=== PATIENT | male | born 1955 | race Caucasian/White ===

== ENCOUNTER 2019-07-08 16:29 | Emergency (ER) | payer MEDICARE, MEDICAID ==
[2019-07-08] MEDS ORDERED: KETAMINE HCL* 50 MG/ML 10 ML VIAL IV ONE (16:34)
--- NOTE | 2019-07-08 16:44 | ED ---
Respiratory - HPI Summary HPI Summary: Pt is a 64 y/o M presenting to the ED brought in by EMS for respiratory distress. He had his chest tube removed this morning on the L upper side of his chest from [facility], and when he returned home he went up the stairs and began hyperventilating. He denies fever. He has hx of COPD and multiple PTX. He denies hx of anticoagulant therapy. EMS stated he was given a duoneb and was satting 85% in the ambulance. Pt's medications reviewed, allergies noted. - History of Current Complaint Stated Complaint: SOB PER EMS Time Seen by Provider: 07/08/19 16:40 Hx Obtained From: Patient Onset/Duration: Sudden Onset, Lasting Hours, Still Present Timing: Constant Initial Severity: Moderate Current Severity: Severe Character: Dyspnea at Rest Sputum Amount: None Aggravating Factor(s): Exertion Alleviating Factor(s): Nothing Associated Signs and Symptoms: SOB - Allergy/Home Medications Allergies/Adverse Reactions: Allergies Allergy/AdvReac Type Severity Reaction Status Date / Time No Known Allergies Allergy Verified 07/04/19 09:29 PMH/Surg Hx/FS Hx/Imm Hx Previously Healthy: No Endocrine/Hematology History: Denies: Hx Diabetes Cardiovascular History: Reports: Hx Hypertension Denies: Hx Pacemaker/ICD Respiratory History: Reports: Hx Chronic Obstructive Pulmonary Disease (COPD), Other Respiratory Problems/Disorders - copd,uses inhaler, hx of PTX (right and left) in 1999 Denies: Hx Asthma History: Denies: Hx Dialysis, Hx Renal Disease Sensory History: Reports: Hx Contacts or Glasses, Hx Deafness - Left ear deafness, Hx Hearing Problem Denies: Hx Hearing Aid Opthamlomology History: Reports: Hx Contacts or Glasses Psychiatric History: Denies: Hx Anxiety, Hx Attention Deficit Hyperactivity Disorder, Hx Depression, Hx Panic Disorder, Hx Community Mental Health Tx, Hx Bipolar Disorder - Surgical History Surgery Procedure, Year, and Place: BROKEN BONES AND COLLASPED LUNG 02/2000. chest tube Infectious Disease History: Reports: Hx Hepatitis - hx of viral hep c - Family History Known Family History: Negative: Hypertension, Diabetes - Social History Alcohol Use: None Hx Substance Use: No Substance Use Type: Reports: None Hx Tobacco Use: Yes Smoking Status (MU): Former Smoker Have You Smoked in the Last Year: No Review of Systems Negative: Fever Positive: Shortness Of Breath All Other Systems Reviewed And Are Negative: Yes Physical Exam - Summary Physical Exam Summary: Constitutional: Well-developed, Well-nourished, Alert. Respiratory distress: 90 percent on 15 liters Skin: Warm, Dry HENT: Normocephalic; Atraumatic Eyes: Conjunctiva normal Neck: Musculoskeletal ROM normal neck. (-) JVD, (-) Stridor, (-) Tracheal deviation Cardio: Rhythm regular, rate normal, Heart sounds normal; Intact distal pulses; The pedal pulses are 2+ and symmetric. Radial pulses are 2+ and symmetric. (-) Murmur Pulmonary/Chest wall: Diminished breath sounds in all guzman retracting (+) Respiratory distress, (-) Wheezes, (-) Rales Abd: Soft, (-) tenderness, (-) Distension, (-) Guarding, (-) Rebound Musculoskeletal: (-) Edema Lymph: (-) Cervical adenopathy Neuro: Alert, Oriented x3 Psych: Mood and affect Normal Triage Information Reviewed: Yes Vital Signs Reviewed: Yes Procedures - Procedure Summary Procedure Summary: Conscious sedation 100 ketamine (50 mg x2) 28 Turkmen chest tube in the L mid auxiliary line at the site of an old chest tube Large whoosh of air when inserted. Post CXR shows reflation of lung with good inflation of chest tube. - Chest Tube Left Mid Lateral Chest Tube Location: mid axillary line Size of Turkmen Tube (cm): 28 Chest Tube Procedure: betadine prep - yes, sterile drapes applied - yes, sterile dressing applied - yes Khan of [place]: Yes Number of Attempts: 1 Time of Successful Intubation: 17:04 Tube Drainage: see nurses notes Tube Sutured to Skin: Yes - 0 silk Post Procedure CXR?: Yes Diagnostics - Laboratory Result Diagrams: 07/08/19 16:35 07/08/19 16:35 Lab Statement: Any lab studies that have been ordered have been reviewed, and results considered in the medical decision making process. - Radiology CXR Radiology Interpretation Completed By: Radiologist Summary of Radiographic Findings: 1. Previous LEFT apical Heimlich valve chest tube no longer present. 2. Moderately large LEFT pneumothorax accounting for greater than 50% of the lung volume is new compared with the prior exam. Associated rightward mediastinal shift indicating a tension component. 3. Stigmata of chronic obstructive pulmonary disease/emphysema. 4. Negative for cardiomegaly. Unremarkable central pulmonary vasculature. ED physician has reviewed this report. CXR Post Chest Tube Radiology Interpretation Completed By: Radiologist Summary of Radiographic Findings: LEFT PNEUMOTHORAX IS IMPROVED WITH CHEST TUBE IN PLACE. MEDIASTINAL STRUCTURES. ARE NOW IN NORMAL POSITION. ED physician has reviewed this report. Disposition - Course Course Of Treatment: Patient was brought in by EMS in respiratory distress. Patient was hypoxic on oxygen and retracting. Patient is had multiple spontaneous pneumothoraxes in the past including his last one recently. Patient was discharged from [facility] today for similar incident. Patient had an emergent x-ray which showed a left pneumothorax with some midline shift. Patient had emergent chest tube placed on the left with reexpansion of his lung. Patient was given ketamine with resolution back to baseline following sedation. Patient was emergently transferred to [facility]. - Diagnoses Provider Diagnoses: Pneumothorax, left - Physician Notifications Discussed Care Of Patient With: Anna Mancuso MD Time Discussed With Above Provider: 17:53 Instructed by Provider To: Transfer - Critical Care Time Critical Care Time: 30-74 min - 30 minutes Discharge ED - Sign-Out/Discharge Documenting (check all that apply): Patient Departure - transferred Patient Received Moderate/Deep Sedation with Procedure: Yes - Discharge Plan Condition: Stable Disposition: TRANS HIGHER LVL OF CARE FAC Referrals: Doug Quesada MD [Primary Care Provider] - - Billing Disposition and Condition Condition: STABLE Disposition: Trans Higher Lvl of Care Fac - Attestation Statements Document Initiated by Omero: Yes Documenting Scribe: August Arreola Provider For Whom Rowane is Documenting (Include Credential): Clayton Silva MD. Scribe Attestation: Samia Sim Marco DiSanto, scribed for Clayton Silva MD. on 07/08/19 at 1755. Scribe Documentation Reviewed: Yes Provider Attestation: The documentation as recorded by the Samia danielson Marco DiSanto accurately reflects the service I personally performed and the decisions made by Clayton wiley MD. Status of Scribe Document: Viewed Consult Consult: The Transfer Center at [facility] in [place] was contacted at 1715 to begin the transfer processes for the pt to receive more specific care. Dr. Anna Mancuso, Thoracic Surgeon, has admitted the pt to [facility]. The pt will be transferred with a Dx of a Left Tension PTX.
[2019-07-08 16:46] LABS: ABS Basophils 0.1 10^3/ul (0-0.2); ABS Eosinophils 0.2 10^3/ul (0-0.6); ABS Lymphocytes 1.4 10^3/ul (1.0-4.8); ABS Monocytes 0.7 10^3/ul (0-0.8); ABS Neutrophils 6.9 10^3/ul (1.5-7.7); Eosinophil % 1.8 %; Hematocrit 42 % (42-52); Hemoglobin 14.4 g/dL (14.0-18.0); Lymphocyte % 15.4 %; Mean Corpuscular HGB Conc 34 g/dL (31-36); Mean Corpuscular Hemoglobin 33 pg (27-31); Mean Corpuscular Volume 97 fL (80-94); Mean Platelet Volume 6.6 fL (7.4-10.4); Nucleated Red Blood Cells % 0.1; Platelet Count 280 10^3/uL (150-450); Red Blood Count 4.31 10^6 /uL (4.18-5.48); Red Cell Distribution Width 14 % (10-15); White Blood Count 9.2 10^3/uL (3.5-10.8)
[2019-07-08] MEDS ORDERED: fentaNYL* 50 MCG/ML 2 ML VIAL (100 MCG VIAL) ONE (16:58)
[2019-07-08] MEDS ORDERED: fentaNYL* 50 MCG/ML 2 ML VIAL (100 MCG VIAL) IV SLOW PU ONE (17:00)
[2019-07-08 17:03] LABS: Albumin 4.2 g/dL (3.2-5.2); Albumin/Globulin Ratio 1.6 (1-3); BUN/Creatinine Ratio 21.3 (8-20); Calcium 9.6 mg/dL (8.6-10.3); EGFR African American 162.1 (>60); EGFR Non-African American 133.9 (>60); Globulin 2.7 g/dL (2-4); Potassium 4.2 mmol/L (3.5-5.0); Total Bilirubin 0.6 mg/dL (0.2-1.0); Total Protein 6.9 g/dL (6.4-8.9)
[2019-07-08 17:12] LABS: INR 0.87 (0.82-1.09)
[2019-07-08] MEDS ORDERED: Ondansetron INJ* 2 MG/ML VIAL ONE (17:43)
[2019-07-08] MEDS ORDERED: Ondansetron INJ* 2 MG/ML VIAL IV ONE (17:44)
[2019-07-08] MEDS ORDERED: Calcium Carbonate CHEW TAB* 500 MG (TUMS) PO ONE ×2 (18:30)
[2019-07-08 18:33] VITALS: BP 146/103
[2019-07-14 22:15] LABS: Ketamine Confirmation 795 ng/mL; Ketamine Interpretation Positive.; Norketamine 131 ng/mL
== END 2019-07-08 18:31 | disposition short-term general hospital (02) ==
LOC: ED 16:29
DX: J93.9 Pneumothorax, unspecified (principal); I10 Essential (primary) hypertension; J44.9 Chronic obstructive pulmonary disease, unspecified; Z87.891 Personal history of nicotine dependence; Z79.82 Long term (current) use of aspirin; Z79.899 Other long term (current) drug therapy
CPT/HCPCS: 32554; 36415; 71045; 80053; 80357; 85025; 85610; 96374; 96375; 99285; G0480; J2405; J3010